=== PATIENT | male | born 1965 | race Caucasian/White ===

== ENCOUNTER 2017-11-25 14:33 | Emergency (ER) | payer SELFPAY ==
[~2017-11-25 14:33] MED LIST: ADVI200C9 PO; ASPI-183 PO; FIORTAB4 PO; FLEX10TA PO; IBUP400T20 PO; LEVA500T33 PO; LISI10TA3 PO; MAGN30S PO; MECL25 PO; OXYC1TAB36 PO; PERI PO; TRAM50 PO; WALKER WHEELS/F1 MIS
[2017-11-25 15:10] VITALS: BP 150/62; PULSE 89; RESP 16; TEMP 99.1; O2SAT 99
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
[2017-11-25 19:30] LABS: AMORPHOUS SEDIMENT, URINE RARE; BILIRUBIN, URINE NEG (NEG); BLOOD, URINE LARGE (NEG); GLUCOSE,URINE NEG (NEG); KETONE, URINE TRACE mg/dL (NEG); MUCUS URINE MOD /lpf (OCC); NITRITE,URINE NEG (NEG); PH, URINE 5.5 (5.0-8.5); URINE COLOR RED (YELLW/STRAW); URINE LEUKOCYTE ESTERASE NEG (NEG)
== END 2017-11-25 19:43 | disposition home or self-care (01) ==
LOC: NED 14:33 → NEPK 19:43
DX: R30.0 Dysuria (principal)
CPT/HCPCS: 81001; 99283

== ENCOUNTER 2017-11-26 09:35 | Emergency (ER) | payer SELFPAY ==
[~2017-11-26] VITALS: Ht 165.1 cm; Wt 80.0 kg
[2017-11-26 09:48] VITALS: BP 126/64; PULSE 84; RESP 16; TEMP 97.7; O2SAT 100
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
== END 2017-11-26 12:00 | disposition left against medical advice (07) ==
LOC: NEPK 09:35
DX: Z00.8 Encounter for other general examination (principal)
CPT/HCPCS: 99281

== ENCOUNTER 2017-12-01 15:17 | Emergency (ER) | payer SELFPAY ==
[~2017-12-01 15:17] MED LIST changes: -ADVI200C9 PO; -FIORTAB4 PO; -FLEX10TA PO; -IBUP400T20 PO; -LEVA500T33 PO; -MAGN30S PO; -MECL25 PO; -TRAM50 PO
== END 2017-12-01 15:46 | disposition left against medical advice (07) ==
LOC: NED 15:17
DX: R39.9 Unspecified symptoms and signs involving the genitourinary system (principal)
CPT/HCPCS: 99281

== ENCOUNTER → 2017-12-03 | Outpatient (CLI) | payer SELFPAY ==
[~2017-12-03] MED LIST changes: +DIATRIZOATE MEG 30% 300 ML BOTTLE (for RAD DIAG) I-VESICULR ONE
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
== END ==
LOC: HRAD 13:30
PROVIDERS: ATTEND Urology
DX: S37.29XA Other injury of bladder, initial encounter (principal); X58.XXXA Exposure to other specified factors, initial encounter
CPT/HCPCS: 51600; 74430; Q9958

== ENCOUNTER 2017-12-23 18:59 | Emergency (ER) | payer SELFPAY ==
[~2017-12-23 18:59] MED LIST changes: -DIATRIZOATE MEG 30% 300 ML BOTTLE (for RAD DIAG) I-VESICULR ONE
[2017-12-23 19:08] VITALS: BP 154/91; PULSE 81; RESP 20; TEMP 99.1; O2SAT 99
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
[2017-12-23] MEDS ORDERED: KETOROLAC TROMETHAMINE 60 MG/2 ML (IM) VIAL IM ONE (21:45)
[2017-12-23 22:06] LABS: AUTOMATED NEUTROPHIL # 3.9 TH/MM3 (1.8-7.7); BASOPHIL # 0.1 TH/MM3 (0-0.2); BASOPHIL % 0.9 % (0.0-2.0); EOSINOPHIL # 1.8 TH/MM3 (0-0.4); EOSINOPHIL % 16.2 % (0.0-4.0); HEMATOCRIT 41.9 % (39.0-51.0); HEMOGLOBIN 13.9 GM/DL (13.0-17.0); LYMPH % 37.4 % (9.0-44.0); LYMPHOCYTE # 4.2 TH/MM3 (1.0-4.8); MEAN CORPUSCULAR HEMOGLOBIN 28.2 PG (27.0-34.0); MEAN CORPUSCULAR HGB CONC 33.1 % (32.0-36.0); MEAN PLATELET VOLUME 8.3 FL (7.0-11.0); MONO % 10.4 % (0.0-8.0); MONOCYTE # 1.2 TH/MM3 (0-0.9); NEUT % 35.1 % (16.0-70.0); PLATELET COUNT 479 TH/MM3 (150-450); RED BLOOD COUNT 4.93 MIL/MM3 (4.50-5.90); RED CELL DISTRIBUTION WIDTH 14.5 % (11.6-17.2); WHITE BLOOD COUNT 11.1 TH/MM3 (4.0-11.0)
[2017-12-23] MEDS ORDERED: HYDR-3288 PO (22:06)
--- NOTE | 2017-12-23 22:06 | RADRPT ---
EXAM DATE/TIME: 12/23/2017 21:56 [facility] COMPARISON: TIBIA/FIBULA RIGHT (AP/LAT), October 22, 2017, 9:39. INDICATIONS : Right lower leg pain and swelling. MEDICAL HISTORY : None. SURGICAL HISTORY : ORIF right tib/fib. ENCOUNTER: Initial ACUITY: 1 week PAIN SCORE: 5/10 LOCATION: Right lower leg. FINDINGS: Two view examination of the right tibia demonstrates intramedullary riaz fixating a proximal tibial fr acture. Fracture line still evident. There are signs of healing. Proximal fibular fracture is more di splaced. Periosteal reaction noted. CONCLUSION: 1. Internal fixation tibia with healing fracture. 2. Displaced healing proximal fibular fracture. Erick Badillo MD on December 23, 2017 at 22:03 Board Certified Radiologist. This report was verified electronically.
[2017-12-23 22:22] LABS: BICARBONATE 28.6 MEQ/L (21.0-32.0); CALCIUM 9.2 MG/DL (8.5-10.1); CREATININE 0.72 MG/DL (0.60-1.30)
[2017-12-23 22:50] LABS: PROTHROMBIN TIME - PATIENT 10.3 SEC (9.8-11.6)
--- NOTE | 2017-12-23 22:53 | RADRPT ---
EXAM DATE/TIME: 12/23/2017 22:33 [facility] COMPARISON: No previous studies available for comparison. INDICATIONS : Right leg pain. MEDICAL HISTORY : Leg pain. SURGICAL HISTORY : Bilateral leg surgery. ENCOUNTER: Initial ACUITY: 1 week PAIN SCORE: 1/10 LOCATION: Right leg. TECHNIQUE: Venous ultrasound of the leg was performed from the inguinal ligament to the proximal calf. Real-cindi e, color Doppler and spectral tracing, compression and augmentation techniques were used. FINDINGS: There is normal compressibility of the deep venous system from the inguinal region to the proximal ca lf. No echogenic clot is seen in the lumen of the common femoral, femoral, popliteal, and posterior tibial veins. There is a normal response of the venous system to proximal and distal augmentation an d respiration. CONCLUSION: No DVT. Erick Badillo MD on December 23, 2017 at 22:51 Board Certified Radiologist. This report was verified electronically.
[2017-12-23] MEDS ORDERED: IBUP-232 PO (22:59)
== END 2017-12-23 23:23 | disposition home or self-care (01) ==
LOC: NEPD 18:59
DX: G89.18 Other acute postprocedural pain (principal); M79.604 Pain in right leg
CPT/HCPCS: 73590; 80048; 85025; 85610; 85730; 93971; 96372; 99285; J1885